=== PATIENT | male | born 1975 | race African-American/Black ===

== ENCOUNTER 2017-04-08 11:24 | Emergency (ER) | payer OTHER ==
[~2017-04-08] VITALS: Ht 180.3 cm; Wt 105.0 kg
[2017-04-08 13:09] VITALS: BP 137/88
== END 2017-04-08 13:17 | disposition home or self-care (01) ==
LOC: EMS 11:25
DX: K08.89 Other specified disorders of teeth and supporting structures (principal); M54.5 Low back pain; R03.0 Elevated blood-pressure reading, without diagnosis of hypertension; Z88.6 Allergy status to analgesic agent
CPT/HCPCS: 99283

== ENCOUNTER 2017-11-23 06:16 | Emergency (ER) | payer MEDICAID, OTHER ==
[~2017-11-23] VITALS: Ht 180.3 cm; Wt 104.5 kg
[2017-11-23 08:39] VITALS: BP 143/104
[2017-11-23] MEDS ORDERED: ACETAMINOPHEN 325 MG TABLET PO ONE (10:15)
== END 2017-11-23 10:17 | disposition home or self-care (01) ==
LOC: EMS 06:17
DX: S00.33XA Contusion of nose, initial encounter (principal); R03.0 Elevated blood-pressure reading, without diagnosis of hypertension; Z88.6 Allergy status to analgesic agent; W22.8XXA Striking against or struck by other objects, initial encounter; Y93.89 Activity, other specified; Y92.89 Other specified places as the place of occurrence of the external cause; Y99.8 Other external cause status
CPT/HCPCS: 70160; 99284

== ENCOUNTER 2018-08-09 13:21 | Emergency (ER) | payer SELFPAY ==
[~2018-08-09] VITALS: Ht 180.3 cm; Wt 104.5 kg
[2018-08-09 16:05] VITALS: BP 148/90
== END 2018-08-09 16:06 | disposition home or self-care (01) ==
LOC: EMS 13:22
DX: K04.7 Periapical abscess without sinus (principal); Z88.6 Allergy status to analgesic agent

== ENCOUNTER 2018-09-28 08:53 | Emergency (ER) | payer SELFPAY ==
[~2018-09-28] VITALS: Ht 180.3 cm; Wt 104.5 kg
[2018-09-28 09:43] LABS: APPEARANCE,URINE CLEAR (CLEAR); BILIRUBIN,URINE NEGATIVE (NEGATIVE); GLUCOSE, URINE (UA) NEGATIVE (NEGATIVE); KETONES,URINE NEGATIVE (NEGATIVE); LEUKOCYTE ESTERASE ,URINE NEGATIVE (NEGATIVE); NITRATE,URINE NEGATIVE (NEGATIVE); OCCULT BLOOD,URINE NEGATIVE (NEGATIVE); PH,URINE 6.5 (5.0-8.0); PROTEIN,URINE NEGATIVE (NEGATIVE)
[2018-09-28 09:57] LABS: BACTERIA,URINE None Seen /HPF (None Seen); RBC,URINE None Seen /HPF (0-2); SQUAMOUS EPITHELIAL CELL,UR Rare /LPF (None Seen); WBC,URINE None Seen /HPF (0-5)
[2018-09-28] MEDS ORDERED: LIDOCAINE 5% TRANSDERMAL PATCH TD ONE (10:30)
[2018-09-28] MEDS ORDERED: ACETAMINOPHEN 325 MG TABLET PO ONE (10:30)
[2018-09-28 11:46] VITALS: BP 134/92
== END 2018-09-28 12:01 | disposition home or self-care (01) ==
LOC: EMS 08:54
DX: M54.5 Low back pain (principal); M62.830 Muscle spasm of back; Z88.6 Allergy status to analgesic agent
CPT/HCPCS: 72100

== ENCOUNTER 2022-01-28 11:10 | Emergency (ER) | payer SELFPAY ==
[~2022-01-28] VITALS: Ht 180.3 cm; Wt 109.1 kg
[2022-01-28] MEDS ORDERED: CYCLOBENZAPRINE HCL 10 MG TABLET PO ONE (13:45)
[2022-01-28] MEDS ORDERED: CYCL-448 PO (14:29)
[2022-01-28 14:42] VITALS: BP 149/97
== END 2022-01-28 14:45 | disposition home or self-care (01) ==
LOC: EMS 11:10
DX: M54.50 Low back pain, unspecified (principal); M62.830 Muscle spasm of back; Z88.5 Allergy status to narcotic agent; Z88.6 Allergy status to analgesic agent
CPT/HCPCS: 72100; 99283